=== PATIENT | male | born 1970 | race Caucasian/White ===

== ENCOUNTER 2018-01-12 15:02 | Inpatient (IN) | payer OTHER, MEDICARE ==
[~2018-01-12] VITALS: Ht 162.6 cm; Wt 90.7 kg
--- NOTE | 2018-01-12 15:37 | ED PSYCHIATRIC COMPLAINT ---
History of Present Illness General Chief Complaint: Psychiatric Related Complaint Stated Complaint: BIBA FOR PSYCH EVAL, +SI Source: patient Exam Limitations: poor historian Vital Signs & Intake/Output Vital Signs & Intake/Output Vital Signs Date Time Temp Pulse Resp B/P B/P Pulse O2 O2 Flow FiO2 Mean Ox Delivery Rate 01/13 0602 97.8 66 18 136/83 96 Room Air 01/12 2300 76 18 150/71 96 Room Air 01/12 2023 84 18 154/98 96 Room Air 01/12 1821 85 18 140/77 94 Room Air 01/12 1531 Room Air 01/12 1530 97.5 77 18 144/87 97 Room Air ED Intake and Output 01/13 0000 01/12 1200 Intake Total Output Total Balance Patient 200 lb Weight Weight Estimated Measurement Method Triage Note: PT COMING FROM HOME. VISITING NURSE WAS WITH PT. PT HAS STOPPED TAKING MEDS FOR BIPOLAR FOR 2 MO. STATES "I DON'T WANT TO TAKE MY MEDS WITH OUT A GOOD THERAPIST" PT WANTS HIS MEDS TO BE ADJUSTED AND GET IN TOUCH WITH A GOOD THERAPIST. DENIES SI/HI, DENIES ANY ETOH OR DRUGS. HY OF SCHIZOAFFECTIVE, BIPOLAR, AND TYPE 2 DM. BS 248 THIS AM. Triage Nurses Notes Reviewed? yes Onset: Gradual Duration: hour(s): Timing: single episode today HPI: 47YO male with hx of bipolar disorder and diabetes presents to ED in care of visiting nurse. Patient states he has been off of his bipolar medication for about 2 months, he states he does not want take this medication any longer. Patient endorses fuzzy sensation and dizziness. He states that this morning his nurse told him that when she was trying to wake him up he was unresponsive. Patient is unsure of exactly what happened. Patient denies any recent head injury. Patient reports depression however he denies suicidal ideation/HI. (Blanca BRYAN,Raiza Abdullahi) Allergies Coded Allergies: NSAIDS (Non-Steroidal Anti-Inflamma (PER MED LIST [facility] 01/12/18 ) aspirin (PER MED LIST [facility] 01/12/18) cephalexin (From KEFLEX) (PER [facility] MED LIST 01/12/18) insulin glargine (From LANTUS U-100 INSULIN) (PER MED LIST [facility] 01/12/18) Reconcile Medications Acetaminophen 500 MG TABLET 2 TAB PO Q6H CERVICAL PAIN (Reported) Acetaminophen (Mapap) 500 MG TABLET 2 TAB PO BID PRN PAIN (Reported) Duloxetine HCl (Cymbalta) 60 MG CAPSULE.DR 1 CAP PO QAM UNKNOWN (Reported) Levothyroxine Sodium (Synthroid) 150 MCG TABLET 1 TAB PO DAILY THYROID ( Reported) Metformin HCl (Metformin HCl ER) 500 MG TAB.ER.24H 3 TAB PO QPM DM (Reported) Metronidazole (Metrocream) 0.75 % CREAM..G. 1 KERI TOP AD PRN ITCHY AREAS ( Reported) apply to affected area(s) Nortriptyline HCl (Pamelor) 10 MG CAPSULE 1 CAP PO QHS UNKNOWN (Reported) Nystatin (Nyamyc) 100,000 UNIT/GRAM POWDER 1 KERI TOP AD PRN FUNGAL AREA ( Reported) Omeprazole 20 MG CAPSULE.DR 1 CAP PO BID GI (Reported) Pravastatin Sodium 40 MG TABLET 1 TAB PO QPM CHOLESTEROL (Reported) Ramipril (Altace) 10 MG CAPSULE 1 CAP PO QAM BP (Reported) Sitagliptin Phosphate (Januvia) 100 MG TABLET 1 TAB PO QAM DM (Reported) (Joyce VARGAS,Grabiel Cuadra) Past History Travel History Traveled to [place] past 21 day No Medical History Any Pertinent Medical History? see below for history Psychiatric: bipolar disease, schizo affective disorder Endocrine: diabetes Surgical History Surgical History: non-contributory Psychosocial History What is your primary language Jamaican Tobacco Use: Never used ETOH Use: denies use Family History Hx Contributory? No (Raiza Rodriguez) Review of Systems Review of Systems Constitutional: Reports: see HPI. EENTM: Reports: no symptoms. Respiratory: Reports: no symptoms. Cardiovascular: Reports: no symptoms. GI: Reports: no symptoms. Genitourinary: Reports: no symptoms. Musculoskeletal: Reports: no symptoms. Skin: Reports: no symptoms. Neurological/Psychological: Reports: see HPI. Hematologic/Endocrine: Reports: no symptoms. Immunologic/Allergic: Reports: no symptoms. All Other Systems: Reviewed and Negative (Raiza Rodriguez) Physical Exam Physical Exam General Appearance: well developed/nourished, no apparent distress, alert, awake Head: atraumatic, normal appearance Eyes: Bilateral: normal appearance, PERRL, EOMI. Ears, Nose, Throat: normal pharynx, hearing grossly normal Neck: normal inspection, supple, full range of motion Respiratory: normal breath sounds, no respiratory distress, lungs clear Cardiovascular: regular rate/rhythm Gastrointestinal: normal bowel sounds, soft, non-tender, no organomegaly Extremities: normal range of motion Neurological/Psychiatric: no motor/sensory deficits, awake, alert, normal mood/ affect, calm Appearance/Memory/Insight: appropriate appearance Behavoir/Eye Contact/Speech: cooperative, normal speech Thoughts/Hallucinations: normal thought pattern, no apparent hallucination Skin: intact, normal color, warm/dry SAD PERSONS Done? patient not suicidal (Blanca BRYAN,Raiza Abdullahi) Progress Differential Diagnosis: dementia, drug overdose, drug withdrawal, electrolyte abnormality, encephalitis, hypoglycemia, IC hem/mass/tumor Diagnostic Imaging: Viewed by Me: CT Scan. Discussed w/RAD: CT Scan. Radiology Impression: PATIENT: YOKO LOTT PRESENT AGE: 47 PATIENT ACCOUNT NO: [id number] : 68 LOCATION: [facility] ORDERING PHYSICIAN: Raiza BRYAN SERVICE DATE: 01/12/18 EXAM TYPE: CAT - CT HEAD WO IV CONTRAST EXAMINATION: CT HEAD WITHOUT CONTRAST CLINICAL INFORMATION: Altered mental status. COMPARISON: None. TECHNIQUE: Contiguous axial images of the brain were obtained without IV contrast. DLP: 621 mGy-cm. FINDINGS: There are no pathologic extra-axial fluid collections. The lateral, third, fourth ventricles are nondilated and concordant with the appearance of the sulci. There is no evidence for acute intraparenchymal hemorrhage or infarct. There is neither mass nor mass effect. There is no shift of midline structures. The paranasal sinuses and mastoid air cells are clear. There are no osseous lesions. IMPRESSION: No evidence for acute intracranial injury. DICTATED BY: Akbar Salvador MD DATE/TIME DICTATED:01/12/181648 PRODUCTION ENGINE REPAIRER: SUNDAR DATE/TIME TRANSCRIBED:01/12/181648 CONFIDENTIAL, DO NOT COPY WITHOUT APPROPRIATE AUTHORIZATION. <Electronically signed in Other Vendor System> SIGNED BY: Akbar Salvador MD 01/12/181654 Initial ED EKG: sinus rhythm @73bpm, nonspecific ST changes Hand-Off Endorsed To: Grabiel Cook MD Endorsed Time: 1899 Pending: consult (CRISIS) (Blanca BRYAN,Raiza Kaylen) Plan of Care: Orders Procedure Date/time Status Regular Diet 01/12 D Active Add-on Test (ER Only) 01/12 1705 Active Add-on Test (ER Only) 01/12 1609 Active FingerStick- Glucose 01/12 1609 Active EKG 01/12 1609 Active URINALYSIS 01/12 1550 Complete TROPONIN LEVEL 01/12 1546 Complete Continuous Observation Monitor 01/12 1536 Active URINE DRUG SCREEN FOR ER ONLY 01/12 1535 Complete ETHANOL 01/12 1535 Complete COMPREHENSIVE METABOLIC PANEL 01/12 1535 Complete CBC WITHOUT DIFFERENTIAL 01/12 1535 Complete ED CRISIS PSYCH CONSULT 01/12 1535 Active Laboratory Tests 01/12/18 1609: Urine Color Cancelled, Urine Clarity Cancelled, Urine pH Cancelled, Ur Specific [place] Cancelled, Urine Protein Cancelled, Urine Ketones Cancelled, Urine Nitrite Cancelled, Urine Bilirubin Cancelled, Urine Urobilinogen Cancelled, Ur Leukocyte Esterase Cancelled, Ur Microscopic Cancelled, Urine Hemoglobin Cancelled, Urine Glucose Cancelled 01/12/18 1550: Urine Opiates Screen < 100, Methadone Screen < 40, Barbiturate Screen < 60, Ur Phencyclidine Scrn < 6.00, Amphetamines Screen < 100, U Benzodiazepines Scrn < 85, Urine Cocaine Screen < 50, Urine Cannabis Screen < 5.00, Urine Color YEL, Urine Clarity CLEAR, Urine pH 6.0, Ur Specific [place] 1.020, Urine Protein NEG, Urine Ketones NEG, Urine Nitrite NEG, Urine Bilirubin NEG, Urine Urobilinogen 0.2, Ur Leukocyte Esterase NEG, Ur Microscopic EXAM NOT REQUIRED, Urine Hemoglobin NEG, Urine Glucose 500 H 01/12/18 1546: Anion Gap 10, Estimated GFR > 60, BUN/Creatinine Ratio 16.7, Glucose 148 H, Calcium 8.5, Total Bilirubin 0.2, AST 24, ALT 45, Alkaline Phosphatase 217 H, Troponin I < 0.01, Total Protein 6.3, Albumin 3.7, Globulin 2.6, Albumin/ Globulin Ratio 1.4, CBC w Diff NO MAN DIFF REQ, RBC 4.32 L, MCV 84.8, MCH 27.7, MCHC 32.7 L, RDW 15.4 H, MPV 10.0, Gran % 56.9, Lymphocytes % 30.5, Monocytes % 10.2 H, Eosinophils % 2.1, Basophils % 0.3, Absolute Granulocytes 3.5, Absolute Lymphocytes 1.9, Absolute Monocytes 0.6, Absolute Eosinophils 0.1, Absolute Basophils 0, Serum Alcohol < 10.0 During physical exam patient displayed episode of altered status which she would not respond to verbal stimuli. Patient was sitting upright in stretcher with his head slumped over. Respirations and heart rate were normal at this time. Patient on this incident head CT, EKG, troponin were obtained for further evaluation. Dr. Shore agrees with this plan Patient's EKG is in sinus rhythm without acute ischemic changes. Head CT shows no acute abnormality. Patient's labs are stable. Patient's confusion be related to psychiatric origin, crisis consult is pending. The patient was signed out to Dr. Cook pending crisis evaluation. (Blanca BRYAN,Raiza Abdullahi) Comments: 01/12/2018 7:29:35 PM patient signed out to me by PA at shift exchange teller. 01/12/2018 8:54:35 PM patient medicated for increasing agitation. According to the crisis condition the patient will be admitted tomorrow. 01/13/2018 7:28:44 AM patient signed out to Dr. Hayes at shift exchange teller after an uneventful emergency department stay overnight. (Joyce VARGAS,Grabiel Cuadra) Departure Departure Disposition: STILL A PATIENT Condition: Stable Departure Forms: Customer Survey General Discharge Information (Raiza Rodriguez) Departure Clinical Impression Primary Impression: Schizoaffective disorder Secondary Impressions: Confusion, Dizziness Psych Admission Note Psychiatric Admission: I have seen and evaluated YOKO LOTT. I have also reviewed all the pertinent lab results and diagnostic results. YOKO LOTT will be admitted to our inpatient Psychiatric unit for treatment and care. PA/CUSTOMER EXPERIENCE CONSULTANT Co-Sign Statement Statement: ED Attending supervision documentation- [X] I saw and evaluated the patient. I have also reviewed all the pertinent lab results and diagnostic results. I agree with the findings and the plan of care as documented in the PA's/CUSTOMER EXPERIENCE CONSULTANT's documentation. [X] I have reviewed the ED Record and agree with the PA's/CUSTOMER EXPERIENCE CONSULTANT's documentation. [] Additions or exceptions (if any) to the PAs/CUSTOMER EXPERIENCE CONSULTANT's note and plan are summarized below: [Patient to be admitted to [facility] for further evaluation and treatment] (Abigail VARGAS,Radu Michael)
[2018-01-12 16:02] LABS: ABSOLUTE BASOPHIL COUNT 0 /CUMM (0.0-0.2); ABSOLUTE EOSINOPHIL COUNT 0.1 /CUMM (0.0-0.7); ABSOLUTE GRANULOCYTE CT 3.5 /CUMM (1.4-6.5); ABSOLUTE LYMPH COUNT 1.9 /CUMM (1.2-3.4); ABSOLUTE MONOCYTE COUNT 0.6 /CUMM (0.10-0.60); BASOPHIL % 0.3 % (0.0-2.0); EOSINOPHIL % 2.1 % (0-5); GRANULOCYTE % 56.9 % (42.2-75.2); HEMATOCRIT 36.6 % (42-52); MEAN CORPUSCULAR HGB 27.7 PG (27.0-31.0); MEAN CORPUSCULAR HGB CONC 32.7 G/DL (33.0-37.0); MEAN CORPUSCULAR VOLUME 84.8 FL (80.0-94.0); PLATELET COUNT 169 /CUMM (130-400); RBC DISTRIBUTION WIDTH 15.4 % (11.5-14.5); RED BLOOD CELL CT 4.32 /CUMM (4.70-6.10); WHITE BLOOD CELL COUNT 6.2 /CUMM (4.8-10.8)
--- NOTE | 2018-01-12 16:55 | CT SCAN REPORT ---
EXAMINATION: CT HEAD WITHOUT CONTRAST CLINICAL INFORMATION: Altered mental status. COMPARISON: None. TECHNIQUE: Contiguous axial images of the brain were obtained without IV contrast. DLP: 621 mGy-cm. FINDINGS: There are no pathologic extra-axial fluid collections. The lateral, third, fourth ventricles are nondilated and concordant with the appearance of the sulci. There is no evidence for acute intraparenchymal hemorrhage or infarct. There is neither mass nor mass effect. There is no shift of midline structures. The paranasal sinuses and mastoid air cells are clear. There are no osseous lesions. IMPRESSION: No evidence for acute intracranial injury.
--- NOTE | 2018-01-12 18:59 | ED PSYCH CRISIS CONSULTATION ---
See Addendum Crisis Consult Basic Assessment Date of Consult: 01/12/18 Responsible Person/Accompanied By: Brought in by ambulance Insurance Authorization: Insurance #1: Insurance name: MEDICARE A Phone number: Policy number: [id number] Group number: Authorization number: ED Provider: Patient's ED Provider: Raiza Rodriguez Primary Care Physician: Patient's PCP: David Conti MD PCP's Current Psychiatrist: None Chief Complaint: Psychiatric Related Complaint Patient's Quote: "My nurse sent me in." Present Illness: The patient is a 47 year old, single male presenting to the Emergency Department, on the recommendation of his visiting. The patient presents alert and oriented with hyperverbal, pressured speech and tangential thought process, with loose associations. He states that his visiting nurse arrived and sent him to [facility], because he has gone to [place] "everyday for the last 2 weeks," and they have not helped him. He states that he is not feeling well and has been feeling dizzy, noting that "he fainted," earlier today. He states that he has been diagnosed with "Bipolar, Schizoaffective, Major Depression, Suicidal ideations and chronic pain," in the past. He was receiving treatment from [facility] and [facility], however the timeline is unclear. He states that he stopped treatment at [facility] because "they were unprofessional," and then stopped his medications on his own. He then goes on to discuss, being at [facility] and having the doctor stop his abilify, "because of his sugars (has Diabetes)". He was only able to provide minimal psychiatric treatment history, noting that he has been to [place] numerous times and was hospitalized for an eating Disorder at [facility], when he was 7 (for almost a year). He denies feeling depressed or anxious and denies any current suicidal or homicidal ideations. He reports one previous suicide attempt, in 2002 via OD. He states that he always hears the voice of his father, telling him very negative things. He denies that his AH are command in nature, however states they do make him feel depressed. He denies any paranoia or VH. He states that he has only been sleeping 1 hour a night and has had a decrease in motivation, energy, concentration and appetite. He kept repeating "that he does not feel right," and that he has been feeling overwhelmed. He states that he has been having difficulty word finding and that it is a new symptom for him. He denies any history of trauma or abuse. He denies any current or history of drug or alcohol abuse. He states that he resides in his own apartment, is on Social Security Disability, does not have any children and is not currently in a relationship. He would like to be admitted for his mental health issues and for a medical workup. SW left a message with the calling service for [facility] ([phone]), to try and find out, what the visiting nurse was concerned about and what the patients baseline is. Patient's Address: [address] [place] [address] [address] [place] [address] Other Phone Number: Who Do You Live With? Patient/Self Family/Informants Interviewed: Message left with [facility] Center, to talk to tester electronic scale nurse. . Laboratory Results: Laboratory Tests 01/12/18 1609: Urine Color Cancelled, Urine Clarity Cancelled, Urine pH Cancelled, Ur Specific [place] Cancelled, Urine Protein Cancelled, Urine Ketones Cancelled, Urine Nitrite Cancelled, Urine Bilirubin Cancelled, Urine Urobilinogen Cancelled, Ur Leukocyte Esterase Cancelled, Ur Microscopic Cancelled, Urine Hemoglobin Cancelled, Urine Glucose Cancelled 01/12/18 1550: Urine Opiates Screen < 100, Methadone Screen < 40, Barbiturate Screen < 60, Ur Phencyclidine Scrn < 6.00, Amphetamines Screen < 100, U Benzodiazepines Scrn < 85, Urine Cocaine Screen < 50, Urine Cannabis Screen < 5.00, Urine Color YEL, Urine Clarity CLEAR, Urine pH 6.0, Ur Specific [place] 1.020, Urine Protein NEG, Urine Ketones NEG, Urine Nitrite NEG, Urine Bilirubin NEG, Urine Urobilinogen 0.2, Ur Leukocyte Esterase NEG, Ur Microscopic EXAM NOT REQUIRED, Urine Hemoglobin NEG, Urine Glucose 500 H 01/12/18 1546: Anion Gap 10, Estimated GFR > 60, BUN/Creatinine Ratio 16.7, Glucose 148 H, Calcium 8.5, Total Bilirubin 0.2, AST 24, ALT 45, Alkaline Phosphatase 217 H, Troponin I < 0.01, Total Protein 6.3, Albumin 3.7, Globulin 2.6, Albumin/ Globulin Ratio 1.4, CBC w Diff NO MAN DIFF REQ, RBC 4.32 L, MCV 84.8, MCH 27.7, MCHC 32.7 L, RDW 15.4 H, MPV 10.0, Gran % 56.9, Lymphocytes % 30.5, Monocytes % 10.2 H, Eosinophils % 2.1, Basophils % 0.3, Absolute Granulocytes 3.5, Absolute Lymphocytes 1.9, Absolute Monocytes 0.6, Absolute Eosinophils 0.1, Absolute Basophils 0, Serum Alcohol < 10.0 Past History Past Medical History Psychiatric: bipolar disease, schizo affective disorder Endocrine: diabetes Past Surgical History Surgical History: non-contributory Psychosocial History Strengths/Capabilities: The patient has a stable living enviornment, a supportive visiting nurse and is on Social Security Disability. Physical Limitations (Interventions): He reports that he has chronic pain. Psychiatric Treatment History Psych Treatment Psychiatric Treatment Yes Inpatient Treatment Yes Outpatient Treatment Yes Location of Treatment [facility], [place], [facility], and [facility] Diagnosis by History: Per patient "Bipolar, Schizoaffective, Major Depression, Suicidal ideations and chronic pain." Substance Use/Abuse History Drug Use/Abuse Substances Used/Abused No (Pt. denies) First Use N/A Last Used N/A How much used/taken N/A How often N/A For how long N/A Route of use N/A Substance Abuse Treatment Substance Abuse Treatment Past Substance Abuse [place] No Inpatient Treatment No Outpatient Treatment No Location of Treatment N/A Reason for Treatment N/A Dates of Treatment N/A Response to Treatment N/A Comments: N/A Current Mental Status Mental Status Orientation: Person, Place, Situation, It is unclear if he is confused about the timeline of events or if he is unable to communicate them clearly. Affect: Flat Speech: Hyper-verbal (He states difficulty word find), Pressured Neuro-vegetative: Appetite Decreased, Concentration Poor, Energy Decreased, Sleep Disturbance Appearance Appearance- Dress/Hygiene: He was sitting on the bed, in hospital attire, with good eye contact and participatoin in the evalution. Behaviors Thought Process: Flight of Ideas, Tangential Thought Content: Focused on not being treated at [place] and not feeling well. Memory: Impaired (Difficult to assess) Insight: Fair SI/HI Risk Assessment Past Suicidal Ideation/Attempts Yes Current Suicidal Ideation/Att No Past Homicidal Ideation/Att: No Current Homicidal Ideation/Attempts No Degree of Intent: He denies any current SI or HI, however does admit to one previous attempt in 2002, in which he took an overdose. Danger To: N/A Risk Factors: chronic/serious med cond., history of suicide atmpts, SA/MH hospitalized, lives alone, male, limited support Lethality Ratin PTSD Checklist PTSD Done? 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 Stressors: Issues with his Medicaid and "dizziness." Current GAF: 30 Comments: N/A Departure Disposition Psych Medical Clearance Date: 01/12/18 Medically Cleared at: 1700 Time Started: 1700 Time Ended: 1800 Psychiatrist Consulted: Dr. Collado Date Disposition Established: 01/12/18 Time Disposition Established: 1929 Plan for Disposition - Modality: Hold over for reassessment and to obtain further collateral information. Rationale for Disposition: The patient presents alert and oriented with hyperverbal, pressured speech and tangential thought process, with loose associations. It is unclear the specific reason that he was sent to the ED. He denies SI or HI, however does report negative AH that cause depression. He is having difficulty with word finding and staying on topic. He was easy to redirect and apologetic when he needed to redirected, stating "I just dont feel good." He does report being off his psychiatric medications for the last 2 months and having to stop his Abilify abruptly. Case discussed with Dr. Collado and the patient will be held over for further assessment in the AM and to obtain collateral from previous provider or Visiting nurse, who can provide some insight on his baseline. Additional Instructions: N/A Referrals Gallito VARGAS,David Celaya (PCP/Family)
[2018-01-12] MEDS ORDERED: OMEPRAZOLE20 M2 PO (19:14)
[2018-01-12] MEDS ORDERED: ACETAMINOPHEN500 M4 PO (19:14)
[2018-01-12] MEDS ORDERED: PAMELOR10 MG PO (19:15)
[2018-01-12] MEDS ORDERED: CYMBALTA60 M1 PO (19:20)
[2018-01-12] MEDS ORDERED: MAPAP500 M3 PO (19:20)
[2018-01-12] MEDS ORDERED: PRAVASTATIN SOD40 M2 PO (19:21)
[2018-01-12] MEDS ORDERED: ALTACE10 M2 PO (19:21)
[2018-01-12] MEDS ORDERED: METFORMIN HCL500 M4 PO (19:22)
[2018-01-12] MEDS ORDERED: SYNTHROID150 MCG PO (19:22)
[2018-01-12] MEDS ORDERED: JANUVIA100 M1 PO (19:22)
[2018-01-12] MEDS ORDERED: METROCREAM45 GM TOP (19:23)
[2018-01-12] MEDS ORDERED: NYAMYC15 GM TOP (19:23)
--- NOTE | 2018-01-13 10:51 | IP CRISIS DIAG ASSESS PSYCH ---
Diagnostic Assessment Basic Assessment Insurance Authorization: Insurance #1: Insurance name: MEDICARE A Phone number: Policy number: [id number] Group number: Authorization number: Primary Care Physician: Patient's PCP: David Conti MD PCP's Patient's Quote: "My nurse sent me in." Present Illness: The patient is a 47 year old, single male presenting to the Emergency Department, on the recommendation of his visiting. The patient presents alert and oriented with hyperverbal, pressured speech and tangential thought process, with loose associations. He states that his visiting nurse arrived and sent him to [facility], because he has gone to [facility] "everyday for the last 2 weeks," and they have not helped him. He states that he is not feeling well and has been feeling dizzy, noting that "he fainted," earlier today. He states that he has been diagnosed with "Bipolar, Schizoaffective, Major Depression, Suicidal ideations and chronic pain," in the past. He was receiving treatment from [facility] and [facility], however the timeline is unclear. He states that he stopped treatment at [facility] because "they were unprofessional," and then stopped his medications on his own. He then goes on to discuss, being at [facility] and having the doctor stop his abilify, "because of his sugars (has Diabetes)". He was only able to provide minimal psychiatric treatment history, noting that he has been to [facility] numerous times and was hospitalized for an eating Disorder at [facility], when he was 7 (for almost a year). He denies feeling depressed or anxious and denies any current suicidal or homicidal ideations. He reports one previous suicide attempt, in 2002 via OD. He states that he always hears the voice of his father, telling him very negative things. He denies that his AH are command in nature, however states they do make him feel depressed. He denies any paranoia or VH. He states that he has only been sleeping 1 hour a night and has had a decrease in motivation, energy, concentration and appetite. He kept repeating "that he does not feel right," and that he has been feeling overwhelmed. He states that he has been having difficulty word finding and that it is a new symptom for him. He denies any history of trauma or abuse. He denies any current or history of drug or alcohol abuse. He states that he resides in his own apartment, is on Social Security Disability, does not have any children and is not currently in a relationship. He would like to be admitted for his mental health issues and for a medical workup. SW left a message with the calling service for [facility] ([phone]), to try and find out, what the visiting nurse was concerned about and what the patients baseline is. Patient visiting nurse is Lila from [facility]. Her phone number is [phone]. She works out of the [employer] in [place] and phone mumber there is [phone]. Patient has been treated by PCP Dr. Conti, who has intermediate designer awareness of patient and reiterates that patient has had treaters in the past; however he "fires" people if he does not get treated in the way he wants to be treated and he gets argumentative. Patient has been sporadically compiant with his medication. Dr Conti indicated that he had done pretty well with Cymbalta and Perphenazine in the past. Also tried to contact a friend of the patient with whom patient had worked at [employer] years ago. The friend is supposed to be visiting [place] in January. He is [place] and he lives in [facility] . Patient's Address: [address] [place] [address] [address] [place] [address] Other Phone Number: Who Do You Live With? Patient/Self Feel Safe Where You Live? Yes Feel Safe in Your Relationship Yes Marital Status: single Do You Have Children? No Primary Language? [place] Island[place] Language(s) Spoken At Home: [place] Family/Informants Interviewed: Message left with [facility] Call Center, to talk to foundation relations manager nurse. . Allergies - Coded Allergies: NSAIDS (Non-Steroidal Anti-Inflamma (PER MED LIST [facility] 01/12/18 ) aspirin (PER MED LIST [facility] 01/12/18) cephalexin (From KEFLEX) (PER [facility] MED LIST 01/12/18) insulin glargine (From LANTUS U-100 INSULIN) (PER MED LIST [facility] 01/12/18) Current Medications - Scheduled Medications Acetaminophen 500 MG TABLET 2 TAB PO Q6H CERVICAL PAIN (Reported) Entered as Reported by Aubree Lyles on 01/12/181913 Duloxetine HCl (Cymbalta) 60 MG CAPSULE. 1 CAP PO QAM UNKNOWN (Reported) Entered as Reported by Aubree Lyles on 01/12/181919 Levothyroxine Sodium (Synthroid) 150 MCG TABLET 1 TAB PO DAILY THYROID ( Reported) Entered as Reported by Aubree Lyles on 01/12/181921 Metformin HCl (Metformin HCl ER) 500 MG TAB.ER.24H 3 TAB PO QPM DM (Reported) Entered as Reported by Aubree Lyles on 01/12/181921 Nortriptyline HCl (Pamelor) 10 MG CAPSULE 1 CAP PO QHS UNKNOWN (Reported) Entered as Reported by Aubree Lyles on 01/12/181914 Omeprazole 20 MG CAPSULE. 1 CAP PO BID GI (Reported) Entered as Reported by Aubree Lyles on 01/12/181913 Pravastatin Sodium 40 MG TABLET 1 TAB PO QPM CHOLESTEROL (Reported) Entered as Reported by Aubree Lyles on 01/12/181920 Ramipril (Altace) 10 MG CAPSULE 1 CAP PO QAM BP (Reported) Entered as Reported by Aubree Lyles on 01/12/181920 Sitagliptin Phosphate (Januvia) 100 MG TABLET 1 TAB PO QAM DM (Reported) Entered as Reported by Aubree Lyles on 01/12/181921 Scheduled PRN Medications Acetaminophen (Mapap) 500 MG TABLET 2 TAB PO BID PRN PAIN (Reported) Entered as Reported by Aubree Lyles on 01/12/181919 Metronidazole (Metrocream) 0.75 % CREAM..G. 1 KERI TOP AD PRN ITCHY AREAS ( Reported) Entered as Reported by Aubree Lyles on 01/12/181922 Nystatin (Nyamyc) 100,000 UNIT/GRAM POWDER 1 KERI TOP AD PRN FUNGAL AREA ( Reported) Entered as Reported by Aubree Lyles on 01/12/181922 Consequences of Psych Med Use: sometimes not remember Lab Results: Laboratory Tests 01/12/18 1609: Urine Color Cancelled, Urine Clarity Cancelled, Urine pH Cancelled, Ur Specific Mcdavid Cancelled, Urine Protein Cancelled, Urine Ketones Cancelled, Urine Nitrite Cancelled, Urine Bilirubin Cancelled, Urine Urobilinogen Cancelled, Ur Leukocyte Esterase Cancelled, Ur Microscopic Cancelled, Urine Hemoglobin Cancelled, Urine Glucose Cancelled 01/12/18 1550: Urine Opiates Screen < 100, Methadone Screen < 40, Barbiturate Screen < 60, Ur Phencyclidine Scrn < 6.00, Amphetamines Screen < 100, U Benzodiazepines Scrn < 85, Urine Cocaine Screen < 50, Urine Cannabis Screen < 5.00, Urine Color YEL, Urine Clarity CLEAR, Urine pH 6.0, Ur Specific Mcdavid 1.020, Urine Protein NEG, Urine Ketones NEG, Urine Nitrite NEG, Urine Bilirubin NEG, Urine Urobilinogen 0.2, Ur Leukocyte Esterase NEG, Ur Microscopic EXAM NOT REQUIRED, Urine Hemoglobin NEG, Urine Glucose 500 H 01/12/18 1546: Anion Gap 10, Estimated GFR > 60, BUN/Creatinine Ratio 16.7, Glucose 148 H, Calcium 8.5, Total Bilirubin 0.2, AST 24, ALT 45, Alkaline Phosphatase 217 H, Troponin I < 0.01, Total Protein 6.3, Albumin 3.7, Globulin 2.6, Albumin/ Globulin Ratio 1.4, CBC w Diff NO MAN DIFF REQ, RBC 4.32 L, MCV 84.8, MCH 27.7, MCHC 32.7 L, RDW 15.4 H, MPV 10.0, Gran % 56.9, Lymphocytes % 30.5, Monocytes % 10.2 H, Eosinophils % 2.1, Basophils % 0.3, Absolute Granulocytes 3.5, Absolute Lymphocytes 1.9, Absolute Monocytes 0.6, Absolute Eosinophils 0.1, Absolute Basophils 0, Serum Alcohol < 10.0 Toxicology Screen Completed? Yes Results: negative Symptoms of Use: none Past History Past Medical History Medical History: Bipolar disorder, Depression Abuse/Trauma History Trauma History/Current Trauma: Denies Legal History Current Legal Status: none Have you ever been arrested? No Number of Arrests: [address] Dates: none Network Analyst n/a Psychosocial History Strengths/Capabilities: The patient has a stable living enviornment, a supportive visiting nurse and is on Social Security Disability. Physical Limitations (Interventions): He reports that he has chronic pain. Psychiatric Treatment History Psych Treatment Psychiatric Treatment Yes Inpatient Treatment Yes Outpatient Treatment Yes Location of Treatment [facility], [facility], and [facility] Reason for Treatment Bipolar d/o Dates of Treatment past 20 years Response to Treatment bipolar disorder Diagnosis by History: Per patient "Bipolar, Schizoaffective, Major Depression, Suicidal ideations and chronic pain." Risk Factors: chronic/serious med cond., history of suicide atmpts, SA/MH hospitalized, lives alone, male, limited support Substance Use/Abuse History Drug Use/Abuse minimum 12mo Hx Substances Used/Abused No (Pt. denies) First Use N/A Last Used N/A How much used/taken N/A How often N/A For how long N/A Route of use N/A Substance Abuse Treatment Substance Abuse Treatment Past Substance Abuse TX No Inpatient Treatment No Outpatient Treatment No Location of Treatment N/A Reason for Treatment N/A Dates of Treatment N/A Response to Treatment N/A Sexual History Sexually Active No # of partners 0 Sexual Orientation Heterosexual Use of Protection No Sexual Concerns: would like to meet a partner Education History Highest Level of Education: high school/GED Preferred Learning Style: experiential Current Mental Status Mental Status Orientation: Person, Place, Situation, It is unclear if he is confused about the timeline of events or if he is unable to communicate them clearly., unsure of time Affect: Anxious, Flat Speech: Hyper-verbal (He states difficulty word find), Pressured Neuro-vegetative: Appetite Decreased, Concentration Poor, Energy Decreased, Sleep Disturbance Appearance Appearance- Dress/Hygiene: He was sitting on the bed, in hospital attire, with good eye contact and participatoin in the evalution. Behaviors Thought Process: Flight of Ideas, Tangential Thought Content: Focused on not being treated at [facility] and not feeling well. Memory: Impaired (Difficult to assess) Insight: Fair SI/HI Risk Assessment - Minimum 6mo History- Past Suicidal Ideation/Attempts Yes Current Suicidal Ideation/Att No Past Homicidal Ideation/Att: No Current Homicidal Ideation/Attempts No Degree of Intent: He denies any current SI or HI, however does admit to one previous attempt in 2002, in which he took an overdose. Danger To: N/A Risk Factors: chronic/serious med cond., history of suicide atmpts, SA/MH hospitalized, lives alone, male, limited support Lethality Ratin Needs/Init TX Plan/Goals: Admit patient to locked inpatient unit and place on 15 minute checks Medication and psychiatric evaluation Group and individual treatment Coordinate with [facility] nurse Arrange follow-up treatment AUDIT-C Questionnaire: AUDIT-C Questionnaire: Response Value ETOH use in the past year Never 0 # drinks typical/day Doesn't Drink 0 6 or > drinks per occasion Never 0 Total 0 DSM5/PS Stressors/Medical Prob Diagnosis' (DSM 5, Stressors, Medical): F31.9 Unspecified Bipolar Disorder Medical: Diabetes Type II, Chronic pain and 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 Stressors: Issues with his Medicaid and "dizziness." Current GAF: 30 Comments: Patient parents are and he has only one brother with whom he has no contact. Patient has been to out-patient mental health providers, and has dropped out of several venues, and is not seeing anyone at present.
[2018-01-13 16:36] VITALS: BP 147/90
[2018-01-13 19:49] VITALS: BP 111/58
--- NOTE | 2018-01-13 21:49 | SOCIAL WORKER SOCIAL HX PSYCH ---
Social History Basic Assessment Insurance Authorization: Insurance #1: Insurance name: MEDICARE A Phone number: Policy number: [id number] Group number: Authorization number: Curr Source of Income/Entitlements: SSI (Disability) Primary Care Physician: Patient's PCP: David Conti MD PCP's Present Problem: Patient admitted for suicidal ideation and risk of harm to self. Primary Language? Azeri Language(s) Spoken At Home: Azeri Living Situation Rents or Owns Home? rents Feel Safe Where You Are Living Yes Feel Safe in Relationships? Yes Allergies - Coded Allergies: NSAIDS (Non-Steroidal Anti-Inflamma (PER MED LIST [facility] 01/12/18 ) aspirin (PER MED LIST [facility] 01/12/18) cephalexin (From KEFLEX) (PER [facility] MED LIST 01/12/18) insulin glargine (From LANTUS U-100 INSULIN) (PER MED LIST [facility] 01/12/18) Current Medications - Scheduled Medications Acetaminophen 500 MG TABLET 2 TAB PO Q6H CERVICAL PAIN (Reported) Entered as Reported by Aubree Lyles on 01/12/181913 Duloxetine HCl (Cymbalta) 60 MG CAPSULE. 1 CAP PO QAM UNKNOWN (Reported) Entered as Reported by Aubree Lyles on 01/12/181919 Levothyroxine Sodium (Synthroid) 150 MCG TABLET 1 TAB PO DAILY THYROID ( Reported) Entered as Reported by Aubree Lyles on 01/12/181921 Metformin HCl (Metformin HCl ER) 500 MG TAB.ER.24H 3 TAB PO QPM DM (Reported) Entered as Reported by Aubree Lyles on 01/12/181921 Nortriptyline HCl (Pamelor) 10 MG CAPSULE 1 CAP PO QHS UNKNOWN (Reported) Entered as Reported by Aubree Lyles on 01/12/181914 Omeprazole 20 MG CAPSULE.DR 1 CAP PO BID GI (Reported) Entered as Reported by Aubree Lyles on 01/12/181913 Pravastatin Sodium 40 MG TABLET 1 TAB PO QPM CHOLESTEROL (Reported) Entered as Reported by Aubree Lyles on 01/12/181920 Ramipril (Altace) 10 MG CAPSULE 1 CAP PO QAM BP (Reported) Entered as Reported by Aubree Lyles on 01/12/181920 Sitagliptin Phosphate (Januvia) 100 MG TABLET 1 TAB PO QAM DM (Reported) Entered as Reported by Aubree Lyles on 01/12/181921 Scheduled PRN Medications Acetaminophen (Mapap) 500 MG TABLET 2 TAB PO BID PRN PAIN (Reported) Entered as Reported by Aubree Lyles on 01/12/181919 Metronidazole (Metrocream) 0.75 % CREAM..G. 1 KERI TOP AD PRN ITCHY AREAS ( Reported) Entered as Reported by Aubree Lyles on 01/12/181922 Nystatin (Nyamyc) 100,000 UNIT/GRAM POWDER 1 KERI TOP AD PRN FUNGAL AREA ( Reported) Entered as Reported by Aubree Lyles on 01/12/181922 Consequences of Psych Med Use: None assessed Past History Past Medical History Neurological: dizziness EENT: NONE Cardiovascular: hypertension Respiratory: NONE Gastrointestinal: constipation Hepatic: NONE Renal: NONE Musculoskeletal: NONE Psychiatric: bipolar disease, schizo affective disorder Endocrine: diabetes Blood Disorders: NONE Cancer(s): NONE PARACHUTE INSPECTOR/Reproductive: NONE Past Surgical History Surgical History: non-contributory /Family History Place/Country of Origin: Unknown Childhood Family Constellation: parents and siblings Primary Childhood Caretakers: father, mother Family Life During Childhood: Patient was raised by both parents who are both now. Relationship w/Mother: Mother in 2002 Relationship w/Father: Father in 2015 Any Sibling(s)? Yes Sibling's Gender(s)/Age(s): male Sibling 1: (Age 51) Relationship w/Sibling(s): Patient states he does not speak with his brother at all. Relationship w/Friends: Positive Abuse/Trauma History Trauma History/Current Trauma: Denies History of Trauma/Abuse Treatment? No Legal History Current Legal Status: none Have you ever been arrested No Number of Arrests: 0 Hx of Juvenile Legal Charges? No Hx of Adult Legal Charges? No Civil Proceedings: Patient indicates he may have been involved in probate court for mental capacity / competency hearings in consideration of a conservator. Hydro Technician n/a Psychosocial History Primary Support System: VNA & primary doctor Strengths/Capabilities: The patient has a stable living enviornment, a supportive visiting nurse and is on Social Security Disability. Physical Limitations (Interventions): He reports that he has chronic pain. Last Physical: Unknown History of Seizures? No History of Blackouts? No Hagerman/Social/Peer Relations Patient has positive peer relationships Childhood Zoroastrianism: Jehovah'S Witness Current Zoroastrian Affiliation: Jehovah'S Witness Is Spirituality Important to You? Yes Are There Developmental Issues? No Psychiatric Treatment History Psych Treatment Inpatient Treatment Yes Outpatient Treatment Yes Location of Treatment [facility], [facility], and [facility] Reason for Treatment Bipolar d/o Dates of Treatment past 20 years Response to Treatment bipolar disorder Diagnosis: Per patient "Bipolar, Schizoaffective, Major Depression, Suicidal ideations and chronic pain." Risk Factors: chronic/serious med cond., history of suicide atmpts, SA/MH hospitalized, lives alone, male, limited support Substance Use/Abuse History Drug Use/Abuse:Min 12 mo hx First Use N/A Last Used N/A How much used/taken N/A How often N/A For how long N/A Route of use N/A Have Had Periods of Sobriety? Yes Symptoms of Use: none Substance Abuse Treatment Substance Abuse Treatment Inpatient Treatment No Outpatient Treatment No Location of Treatment N/A Reason for Treatment N/A Dates of Treatment N/A Response to Treatment N/A Sexual History Sexually Active No # of partners 0 Sexual Orientation Heterosexual Use of Protection No Sexual Concerns: would like to meet a partner Education History Highest Level of Education: high school/GED Highest Grade Completed: 12 Preferred Learning Style: experiential Employment History Employment Disability Not in Labor Force: Disabled Vocation/Occupational Hx: Worked at the [employer] over 10 yrs No. of Jobs in Last 5 Years: 2 Attendance: Normal Performance: Good History Have You Been in The ? No Current Mental Status Mental Status Orientation: Person, Place, Situation, It is unclear if he is confused about the timeline of events or if he is unable to communicate them clearly. unsure of time Affect: Anxious, Flat Speech: Hyper-verbal (He states difficulty word find), Pressured Neuro-vegetative: Appetite Decreased, Concentration Poor, Energy Decreased, Sleep Disturbance Appearance Appearance- Dress/Hygiene: He was sitting on the bed, in hospital attire, with good eye contact and participatoin in the evalution. Behaviors Thought Process: Flight of Ideas, Tangential Thought Content: Focused on not being treated at [facility] and not feeling well. Memory: Impaired (Difficult to assess) Insight: Fair SI/HI Risk Assessment Past Suicidal Ideation/Attempts Yes Current Suicidal Ideation/Att No Past Homicidal Ideation/Att: No Current Homicidal Ideation/Attempts No Degree of Intent: He denies any current SI or HI, however does admit to one previous attempt in 2002, in which he took an overdose. Danger To: N/A Lethality Ratin - Conclusion and Recommendations for treatment - and discharge planning Summary: -Patient would like inpatient psychiatric team to request his medical records from [facility]. -Patient will be seen and followed by psychiatric provider who will further assess psychotropic medication management. -Patient will be seen by unit social media community manager individually and with family meetings -Patient will have opportunity to participate in group milieu treatment with various groups led by occupational therapy,social work and nursing staff. -Patient will collobarate with all staff on a safe and appropriate discharge plan
--- NOTE | 2018-01-13 23:30 | History & Physical ---
General Information and HPI History of Present Illness: 47M PMH schizoaffective disorder, hypothyroidism, T2DM, presenting initially to the ED after being advised to go by his visiting nurse. Patient has been inconsistent with his medications, and presents in manic phase, with pressured speech and disorganized thoughts. He complains of a chronic dizziness, which he cannot quite describe, but denies vertigo or lightheadedness. It is constant and not exacerbated by movement, orthostasis, and is not associated with chest pain, palpitations, vision changes, SOB, or any other symptoms. He has chronic back pain that has resolved with physical therapy. He has no other complaints. He denies SI/HI. He does report depression. Allergies/Medications Allergies: Coded Allergies: NSAIDS (Non-Steroidal Anti-Inflamma (PER MED LIST [facility] 01/12/18 ) aspirin (PER MED LIST [facility] 01/12/18) cephalexin (From KEFLEX) (PER [facility] MED [facility] 01/12/18) insulin glargine (From LANTUS U-100 INSULIN) (PER MED LIST [facility] 01/12/18) Home Med list Acetaminophen 500 MG TABLET 2 TAB PO Q6H CERVICAL PAIN (Reported) Acetaminophen (Mapap) 500 MG TABLET 2 TAB PO BID PRN PAIN (Reported) Duloxetine HCl (Cymbalta) 60 MG CAPSULE.DR 1 CAP PO QAM UNKNOWN (Reported) Levothyroxine Sodium (Synthroid) 150 MCG TABLET 1 TAB PO DAILY THYROID ( Reported) Metformin HCl (Metformin HCl ER) 500 MG TAB.ER.24H 3 TAB PO QPM DM (Reported) Metronidazole (Metrocream) 0.75 % CREAM..G. 1 KERI TOP AD PRN ITCHY AREAS ( Reported) apply to affected area(s) Nortriptyline HCl (Pamelor) 10 MG CAPSULE 1 CAP PO QHS UNKNOWN (Reported) Nystatin (Nyamyc) 100,000 UNIT/GRAM POWDER 1 KERI TOP AD PRN FUNGAL AREA ( Reported) Omeprazole 20 MG CAPSULE.DR 1 CAP PO BID GI (Reported) Pravastatin Sodium 40 MG TABLET 1 TAB PO QPM CHOLESTEROL (Reported) Ramipril (Altace) 10 MG CAPSULE 1 CAP PO QAM BP (Reported) Sitagliptin Phosphate (Januvia) 100 MG TABLET 1 TAB PO QAM DM (Reported) Past History Travel History Traveled to [place] past 21 day No Medical History Neurological: dizziness EENT: NONE Cardiovascular: hypertension Respiratory: NONE Gastrointestinal: constipation Hepatic: NONE Renal: NONE Musculoskeletal: NONE Psychiatric: bipolar disease, schizo affective disorder Endocrine: diabetes Blood Disorders: NONE Cancer(s): NONE 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 Home ETOH Use: denies use Employment History Employment Disability Profession/Employer Worked at the [employer] over 10 yrs Review of Systems Review of Systems Constitutional: Reports: no symptoms. EENTM: Reports: no symptoms. Cardiovascular: Reports: no symptoms. Respiratory: Reports: no symptoms. GI: Reports: no symptoms. Genitourinary: Reports: no symptoms. Musculoskeletal: Reports: no symptoms. Skin: Reports: no symptoms. Neurological/Psychological: Reports: no symptoms. Hematologic/Endocrine: Reports: no symptoms. Immunologic/Allergic: Reports: no symptoms. All Other Systems: Reviewed and Negative Exam & Diagnostic Data Last 24 Hrs of Vital Signs/I&O Vital Signs Date Time Temp Pulse Resp B/P B/P Pulse O2 O2 Flow FiO2 Mean Ox Delivery Rate 01/13 1949 97.1 100 111/58 01/13 1636 97.7 99 147/90 01/13 1525 98.7 85 20 146/81 98 Room Air 01/13 1315 65 20 138/78 96 01/13 0602 97.8 66 18 136/83 96 Room Air Physical Exam General Appearance Alert, Oriented X3, Cooperative, No Acute Distress Skin No Significant Lesion HEENT Mucous Membr. moist/pink Neck Supple Cardiovascular Regular Rate Lungs Clear to Auscultation Abdomen Soft, No Tenderness Neurological Exam Findings: Normal Gait, Normal Speech, Sensation Intact Cranial Nerves II through XII: Normal as tested Extremities No Clubbing, No Cyanosis, No Edema Vascular Normal Pulses Last 24 Hrs of Labs/Aron: Laboratory Tests 01/12/18 1609: Urine Color Cancelled, Urine Clarity Cancelled, Urine pH Cancelled, Ur Specific [place] Cancelled, Urine Protein Cancelled, Urine Ketones Cancelled, Urine Nitrite Cancelled, Urine Bilirubin Cancelled, Urine Urobilinogen Cancelled, Ur Leukocyte Esterase Cancelled, Ur Microscopic Cancelled, Urine Hemoglobin Cancelled, Urine Glucose Cancelled 01/12/18 1550: Urine Opiates Screen < 100, Methadone Screen < 40, Barbiturate Screen < 60, Ur Phencyclidine Scrn < 6.00, Amphetamines Screen < 100, U Benzodiazepines Scrn < 85, Urine Cocaine Screen < 50, Urine Cannabis Screen < 5.00, Urine Color YEL, Urine Clarity CLEAR, Urine pH 6.0, Ur Specific [place] 1.020, Urine Protein NEG, Urine Ketones NEG, Urine Nitrite NEG, Urine Bilirubin NEG, Urine Urobilinogen 0.2, Ur Leukocyte Esterase NEG, Ur Microscopic EXAM NOT REQUIRED, Urine Hemoglobin NEG, Urine Glucose 500 H 01/12/18 1546: Anion Gap 10, Estimated GFR > 60, BUN/Creatinine Ratio 16.7, Glucose 148 H, Calcium 8.5, Total Bilirubin 0.2, AST 24, ALT 45, Alkaline Phosphatase 217 H, Troponin I < 0.01, Total Protein 6.3, Albumin 3.7, Globulin 2.6, Albumin/ Globulin Ratio 1.4, CBC w Diff NO MAN DIFF REQ, RBC 4.32 L, MCV 84.8, MCH 27.7, MCHC 32.7 L, RDW 15.4 H, MPV 10.0, Gran % 56.9, Lymphocytes % 30.5, Monocytes % 10.2 H, Eosinophils % 2.1, Basophils % 0.3, Absolute Granulocytes 3.5, Absolute Lymphocytes 1.9, Absolute Monocytes 0.6, Absolute Eosinophils 0.1, Absolute Basophils 0, Serum Alcohol < 10.0 Assessment/Plan Assessment: 47M PMH schizoaffective disorder, hypothyroidism, T2DM presenting with manic episode, with complaints of chronic dizziness. Recommendations - Management per psychiatry - Continue home medications - Ambulatory for DVT PPx As Ranked By This Provider Problem List: 1. Dizziness 2. Schizoaffective disorder Miscellaneous Miscellaneous Documentation Attending Case Discussed With: Adam Parra MD Primary Care Physician: David Conti MD. Patient sees these Specialists None Level of Patient Care: MARCELO Alcocer
[2018-01-14 07:54] VITALS: BP 145/97
[2018-01-14 12:04] VITALS: BP 126/75
--- NOTE | 2018-01-14 13:14 | Patient Discharge Instructions ---
See Addendum Psych Discharge Inst General Discharge Information Reason for Admission: Referred by visiting nurse. Syncope. AH of father. Decreased sleep, motivation, energy, concentration and appetite. Limited supports. Psy Discharge Primary Diag+ Schizoaffective disorder Psy Discharge Secondary Diag+ Hx learning disability Hypothyroidism Diabetes type II Hypertension Hyperlipidemia Chronic dizziness Back pain Headache Congenital heart murmur Summary Tests/Major Procedures Lab ALT 45 U/L 01/12/18 1546 AST 24 U/L 01/12/18 1546 Alkaline Phosphatase 217 U/L H 01/12/18 1546 BUN 10 mg/dL 01/12/18 1546 Calcium 8.5 mg/dL 01/12/18 1546 Carbon Dioxide 29 mmol/L 01/12/18 1546 Chloride 103 mmol/L 01/12/18 1546 Cholesterol 167 MG/DL 01/14/18 0645 Cholesterol/HDL Ratio 3.7 % 01/14/18 0645 Creatinine 0.6 mg/dL L 01/12/18 1546 Estimated GFR > 60 ml/min 01/12/18 1546 Free T4 0.74 ng/dL 01/14/18 0645 Glucose 148 mg/dL H 01/12/18 1546 HDL Cholesterol 45 mg/dL 01/14/18 0645 LDL Cholesterol, Calc 61 mg/dL L 01/14/18 0645 Potassium 4.4 mmol/L 01/12/18 1546 Sodium 141 mmol/L 01/12/18 1546 TSH 6.240 uIU/mL H 01/14/18 0645 Thyroxine (T4) 4.7 ug/dL 01/14/18 0645 Triglycerides 306 mg/dL H 01/14/18 0645 Hct 36.6 % L 01/12/18 1546 Hgb 12.0 G/DL L 01/12/18 1546 MCHC 32.7 G/DL L 01/12/18 1546 Monocytes % 10.2 % H 01/12/18 1546 Plt Count 169 /CUMM 01/12/18 1546 RBC 4.32 /CUMM L 01/12/18 1546 RDW 15.4 % H 01/12/18 1546 WBC 6.2 /CUMM 01/12/18 1546 Serum Alcohol < 10.0 MG/DL 01/12/18 1546 Urine Glucose 500 MG/DL H 01/12/18 1550 SERVICE DATE: 01/12/18 EXAM TYPE: CAT - CT HEAD WO IV CONTRAST EXAMINATION: CT HEAD WITHOUT CONTRAST CLINICAL INFORMATION: Altered mental status. COMPARISON: None. TECHNIQUE: Contiguous axial images of the brain were obtained without IV contrast. DLP: 621 mGy-cm. FINDINGS: There are no pathologic extra-axial fluid collections. The lateral, third, fourth ventricles are nondilated and concordant with the appearance of the sulci. There is no evidence for acute intraparenchymal hemorrhage or infarct. There is neither mass nor mass effect. There is no shift of midline structures. The paranasal sinuses and mastoid air cells are clear. There are no osseous lesions. IMPRESSION: No evidence for acute intracranial injury. EKG 01/12/18 showed sinus rhythm @ 73, borderline left axis deviation, incomplete right bundle branch block, no previous tracing, borderline EKG, QT 388, QTc 428. Studies Pending at DC: Glycohemoglobin Patient Instructions Contact Information Your Psychiatrist on [facility] was Chris Jean MD * If you are experiencing an emergency related to this hospitalization, please call [phone] to contact the treating psychiatrist or the psychiatrist-on- call. * To Request a copy of your medical records, please contact the Medical Records Department at [phone]. * To request results of studies pending at the time of discharge, please call [phone]. * Continue your Medications until directed to stop by your Healthcare provider. General Medication Information Please continue to take your new medications and your continued home medications , unless otherwise indicated on your discharge medication list, or unless directed by your MD or INSPECTOR WREATH to stop them. Special Instructions Diet Diabetic Activity As Tolerated Other Inst/Recommendations SeePCP for dizziness,back pain,H/A, hiTSH, high alk phos, anemia, abnl EKG. - Tobacco Use Treatment Offered Post DC Medications Offered: Not Applicable Post DC Tobacco Treatment Plan: Not Applicable - EtOH/Drug Use D/O Treatment Offered Post DC Medications Offered: NA-No EtOH/Drug Use D/O Post DC EtOH/SubAbuse TX Plan: NA-No EtOH/Drug Use D/O Metabolic Screening () Not Applicable, patient not on a neuroleptic. OR () Patient on a neuroleptic(s) . Enter below results for Hemoglobin A1C, and lipid panel if obtained during the last 365 days. BMI: 34.300 Blood Pressure: 126/75 Laboratory Results From [facility] (If applicable): [x] Lab Cholesterol 167 MG/DL 01/14/18 0645 Cholesterol/HDL Ratio 3.7 % 01/14/18 0645 HDL Cholesterol 45 mg/dL 01/14/18 0645 LDL Cholesterol, Calc 61 mg/dL L 01/14/18 0645 Triglycerides 306 mg/dL H 01/14/18 0645 Glycohemoglobin ordered and pending. Advance Directives Does the Patient have Medical Advance Directives No/Refused further info Does Pt have Psychiatric Advance Directives? No/Refused further info Does Patient have a Designated Surrogate Decision Maker: No Information About Psychiatric Advance Directives Provided? Refused Discharge Plan Post Hospital Treatment Plan: Returning to home. Resume visiting nurse services with [facility]. [facility] for therapy. Medication management at [facility]. Medical care with PCP David Conti MD.
[2018-01-14] MEDS ORDERED: PERPHENAZINE4 M1 PO (15:05)
[2018-01-14] MEDS ORDERED: BENZTROPINE ME0.5 M1 PO (15:05)
--- NOTE | 2018-01-14 16:00 | CPS PROVIDER INIT ASMT PSYCH ---
Psychiatric Admission Blow Down Helper's Note Reviewed: Yes Patient Seen and Examined: Yes (Seen with PA student) Identifying Information: 47 yo SWM with schizoaffective d/o, admitted on 01/12/18 on a voluntary basis, referred by ER. Chief Complaint: Referred by visiting nurse. Syncope. AH of father. Decreased sleep, motivation, energy, concentration and appetite. Limited supports. Reaction to Hospitalization: "Really good." Wants more 1 on 1. History of Present Illness Onset of Illness: Chronic. Reportedly was visiting [place] ER every day for the last 2 weeks. Circumstances Leading to Admission: Sent in by visiting nurse. Was feeling dizzy. Reportedly had fainted. Problem(s) Justifying Need for Admission: Med adjustment. Referral for services. Other HPI: Please see odd bundle worker's note. Sleep: a little bit on and off, 1-2 hours sleep last night. Appetite: low. Reports unquantified weight loss. Energy: pretty good overall but tired today from no sleep. Case and treatment plan discussed in team meeting. Staff reports that the patient denies SI. Somatic. Limited. Not going to groups. Has a visiting nurse. Past Psychiatric History Past Diagnosis(es)- if any: Schizoaffective d/o. Learning disability. Past Precipitating Factors- if any: Unknown. - Include inpatient and outpatient treatment Treatment History: Not in outpatient tx. [facility] in the past. [facility] in the past. Inpatient: IOP at 9 or 10 yo for 1 year for TREE. History of Suicide Attempts or Gestures 1 attempt in 2002, OD with meds, called for help. Substance Abuse History: No tobacco. No alcohol. No drugs. Allergies: Coded Allergies: NSAIDS (Non-Steroidal Anti-Inflamma (PER MED LIST [facility] 01/12/18 ) aspirin (PER MED LIST [facility] 01/12/18) cephalexin (From KEFLEX) (PER [facility] MED LIST 01/12/18) insulin glargine (From LANTUS U-100 INSULIN) (PER MED LIST [facility] 01/12/18) Home Med List: Acetaminophen 500 MG TABLET 2 TAB PO Q6H CERVICAL PAIN (Reported) Acetaminophen (Mapap) 500 MG TABLET 2 TAB PO BID PRN PAIN (Reported) Duloxetine HCl (Cymbalta) 60 MG CAPSULE.DR 1 CAP PO QAM UNKNOWN (Reported) Levothyroxine Sodium (Synthroid) 150 MCG TABLET 1 TAB PO DAILY THYROID ( Reported) Metformin HCl (Metformin HCl ER) 500 MG TAB.ER.24H 3 TAB PO QPM DM (Reported) Metronidazole (Metrocream) 0.75 % CREAM..G. 1 KERI TOP AD PRN ITCHY AREAS ( Reported) apply to affected area(s) Nortriptyline HCl (Pamelor) 10 MG CAPSULE 1 CAP PO QHS UNKNOWN (Reported) Nystatin (Nyamyc) 100,000 UNIT/GRAM POWDER 1 KERI TOP AD PRN FUNGAL AREA ( Reported) Omeprazole 20 MG CAPSULE.DR 1 CAP PO BID GI (Reported) Pravastatin Sodium 40 MG TABLET 1 TAB PO QPM CHOLESTEROL (Reported) Ramipril (Altace) 10 MG CAPSULE 1 CAP PO QAM BP (Reported) Sitagliptin Phosphate (Januvia) 100 MG TABLET 1 TAB PO QAM DM (Reported) - Include any medical condition(s) that may - impact the patient's recovery/remission Past Medical History: Dizziness. Back pain. Congenital heart murmur. ?Fungal skin infection(s). Hyperlipidemia. Hypertension. Type II DM. Recent weight loss, unquantified. R knee surgery 25-30 years ago, 2 pins. Gallstone removal. Learning disability. 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 Substance Use: Mother drank. Father drugs, especially MJ. Brother drinks. Suicides: Denied. Social History Living Situation: Lives alone in an apartment in [place]. Significant Relationships (family/friends): Parents are . Reports father did prostitution. Reports father was verbally abusive. Brother moved out at 15. Has no supports. Education: GED. Past special ed. for reading/LD/speech therapy. Vocation/Occupation: Worked at [employer] for 9 years. Worked at [employer] for years. Worked at [employer] 4.5 years. On disability. Legal: No arrest hx. Healthly Behaviors Screening Tobacco Screening Tobacco Use from ED Docu: Never used - If tobacco counseling indicated - the following topics are required. - #1 Recognizing dangerous situations. - #2 Coping Skills. - #3 Basic information about quitting. Status of Tobacco Cessation Counseling: Not Applicable Cessation Med Status Not Applicable Alcohol Screening - ETOH screen POS if BAL >=80 or Audit-C>= M4/F3 Audit-C Score from Diag Assess: 0 Blood Alcohol Level: Laboratory Tests 01/12 1546 Toxicology Serum Alcohol (<10 MG/DL) < 10.0 Alcohol Use Screening Results: Neg per Audit C &/or BAL - If ETOH counseling indicated - the following topics are required. - #1 Express concern about the patient's - drinking at unhealthy levels, include informing - of national norms for moderate drinking: - men <= 14 drinks/week, max 4 drinks/occasion - women <= 7 drinks/week, max 3 drinks/occasion - #2 Providing feedback, including linking alcohol to - negative physical effects (liver injury, hypertension) - negative emotional effects (relationship problems and - depression) - negative occupational consequences (reduced work - performance) - #3 Advising the patient to abstain from alcohol or - to drink below national norms for moderate drinking - (as listed above). Status of ETOH Use Counseling: N/A B/C NO ETOH Use Metabolic Screening - Screen if on a Neuroleptic Medication - Metabolic screening should include: - Blood Pressure, BMI, Glucose or Hgb A1c, & a - Lipid profile from within the past 365 days. Metabolic Screening () Not Applicable, patient not on a neuroleptic. OR () Patient on a neuroleptic(s) . Enter below results for Hemoglobin A1C, and lipid panel if obtained during the last 365 days. BMI: 34.300 Blood Pressure: 118/73 Laboratory Results From [facility] (If applicable): [x] Lab Cholesterol 167 MG/DL 01/14/18 0645 Cholesterol/HDL Ratio 3.7 % 01/14/18 0645 HDL Cholesterol 45 mg/dL 01/14/18 0645 Hemoglobin A1c 7.4 % H 01/14/18 1335 LDL Cholesterol, Calc 61 mg/dL L 01/14/18 0645 Triglycerides 306 mg/dL H 01/14/18 0645 Exam and Plan Mental Status Examination Ambulation Status: Unremarkable. Appearance: Dressed in blue paper scrubs. Has a goatee. Attitude towards examiner: Calm, polite and cooperative. Psychomotor activity: There is no psychomotor agitation/retardation. Behavior: Unremarkable. Quality of speech: Loud and dysarthric. Affect: Calm and euthymic. Mood: Reports he is here for h/a's and voices in his head. "I guess my nurse (and PT) thought I wasn't responsive." Had back pain, dizziness. Dizziness is getting stronger. Dizziness 6/10. Back pain 0/10. Headache ~7/10. Mood: "really good, just some headaches and dizziness." Sad 0/10. Anxiety ~0/10. Mason hopeless and helpless at home but not now. Denies feeling worthless or guilty. Suicidal Ideation: Denies active and passive SI. States he had SI because there are no treaters around his home. Homicidal Ideation: Denies HI. Hallucinations: Denies AH today. Denies VH. Paranoid/Delusional Material: Denies PI and magical denis. Difficulties with thought organization: None. Insight: Limited. Judgment: Limited. Orientation: Ox3 except 01/15/18. Cognition: A little slowed. Memory Function: Grossly intact. Estimate of intellectual functioning: Likely B.I.F. Assets/Strengths Patient Identified Assets/Strengths: Food shopping. Computer use. Listening to music. 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 Impression/Plan Impression and Plan: The patient is here after multiple [place] ER visits. No longer meeting inpatient level of care. We are setting up outpatient referrals. - Include all active medical diagnosis that require tx DSM 5 Diagnosis(es): Schizoaffective disorder. Hx learning disability. Hypothyroidism. Diabetes type II. Hypertension. Hyperlipidemia Chronic dizziness. Back pain. Headache. Congenital heart murmur. - Initial Tx Plan for Active Psych & Medical Conditions Treatment Plan: The patient has been monitored for safety, SI and AH. He was given olanzapine. Because of DM, we will change neuroleptic to Trilafon 4 mg qhs and add Cogentin 0.5 mg b.i.d. Major risks/benefits of these medications were discussed with the patient, including risks of irreversible TD and worsening metabolic syndrome from Trilafon. Discharge today to home with visiting nurse follow up, [facility] for medication management and follow up with PCP. Case d/w Dr. David Conti, PCP, tel. [phone]. - Factors that would help patient function - in a less restrictive setting. Factors: Not suicidal.
[2018-01-14 16:15] VITALS: BP 118/73
--- NOTE | 2018-01-14 16:47 | DISCHARGE SUMMARY REPORT-PSYCH ---
Visit Information Visit Dates/Diagnosis' Admission Date: 01/13/18 Discharge Date: 01/14/18 Reason for Admission: Referred by visiting nurse. Syncope. AH of father. Decreased sleep, motivation, energy, concentration and appetite. Limited supports. Psy Discharge Primary Diag: Schizoaffective disorder Psy Discharge Secondary Diag: Hx learning disability Hypothyroidism Diabetes type II Hypertension Hyperlipidemia Chronic dizziness Back pain Headache Congenital heart murmur Hospital Course Significant Lab Findings: Lab ALT 45 U/L 01/12/18 1546 AST 24 U/L 01/12/18 1546 Alkaline Phosphatase 217 U/L H 01/12/18 1546 BUN 10 mg/dL 01/12/18 1546 Calcium 8.5 mg/dL 01/12/18 1546 Carbon Dioxide 29 mmol/L 01/12/18 1546 Chloride 103 mmol/L 01/12/18 1546 Cholesterol 167 MG/DL 01/14/18 0645 Cholesterol/HDL Ratio 3.7 % 01/14/18 0645 Creatinine 0.6 mg/dL L 01/12/18 1546 Estimated GFR > 60 ml/min 01/12/18 1546 Free T4 0.74 ng/dL 01/14/18 0645 Glucose 148 mg/dL H 01/12/18 1546 HDL Cholesterol 45 mg/dL 01/14/18 0645 LDL Cholesterol, Calc 61 mg/dL L 01/14/18 0645 Potassium 4.4 mmol/L 01/12/18 1546 Sodium 141 mmol/L 01/12/18 1546 TSH 6.240 uIU/mL H 01/14/18 0645 Thyroxine (T4) 4.7 ug/dL 01/14/18 0645 Triglycerides 306 mg/dL H 01/14/18 0645 Hct 36.6 % L 01/12/18 1546 Hgb 12.0 G/DL L 01/12/18 1546 MCHC 32.7 G/DL L 01/12/18 1546 Monocytes % 10.2 % H 01/12/18 1546 Plt Count 169 /CUMM 01/12/18 1546 RBC 4.32 /CUMM L 01/12/18 1546 RDW 15.4 % H 01/12/18 1546 WBC 6.2 /CUMM 01/12/18 1546 Serum Alcohol < 10.0 MG/DL 01/12/18 1546 Urine Glucose 500 MG/DL H 01/12/18 1550 Lab Hemoglobin A1c 7.4 % H 01/14/18 1335 SERVICE DATE: 01/12/18 EXAM TYPE: CAT - CT HEAD WO IV CONTRAST EXAMINATION: CT HEAD WITHOUT CONTRAST CLINICAL INFORMATION: Altered mental status. COMPARISON: None. TECHNIQUE: Contiguous axial images of the brain were obtained without IV contrast. DLP: 621 mGy-cm. FINDINGS: There are no pathologic extra-axial fluid collections. The lateral, third, fourth ventricles are nondilated and concordant with the appearance of the sulci. There is no evidence for acute intraparenchymal hemorrhage or infarct. There is neither mass nor mass effect. There is no shift of midline structures. The paranasal sinuses and mastoid air cells are clear. There are no osseous lesions. IMPRESSION: No evidence for acute intracranial injury. EKG 01/12/18 showed sinus rhythm @ 73, borderline left axis deviation, incomplete right bundle branch block, no previous tracing, borderline EKG, QT 388, QTc 428. Course Complications: Patient was seen by Dr. Parra for admission H&P. Per his note of 01/13/18: "Assessment: 47M PMH schizoaffective disorder, hypothyroidism, T2DM presenting with manic episode, with complaints of chronic dizziness. Recommendations - Management per psychiatry - Continue home medications - Ambulatory for DVT PPx" Consultations: None. Allergies: Coded Allergies: NSAIDS (Non-Steroidal Anti-Inflamma (PER MED LIST [facility] 01/12/18 ) aspirin (PER MED [facility] 01/12/18) cephalexin (From KEFLEX) (PER [facility] MED LIST 01/12/18) insulin glargine (From LANTUS U-100 INSULIN) (PER MED [facility] 01/12/18) Hospital Course/TX Response: The patient was monitored on the unit for safety, psychosis and mood disorder. He refused to attend goups and asked for discharge. The patient is denying SI, HI, AH, VH and PI. Per my initial assessment of 01/14/18: "He was given olanzapine. Because of DM, we will change neuroleptic to Trilafon 4 mg qhs and add Cogentin 0.5 mg b.i.d. Major risks/benefits of these medications were discussed with the patient, including risks of irreversible TD and worsening metabolic syndrome from [facility]. Discharge today to home with visiting nurse follow up, [facility], OPS for medication management and follow up with PCP. Case d/w Dr. David Conti, PCP, tel. [phone]." Discharge HBIPS - Tobacco Use Treatment Offered Post DC Medications Offered: Not Applicable Post DC Tobacco Treatment Plan: Not Applicable - EtOH/Drug Use D/O Treatment Offered Post DC Medications Offered: NA-No EtOH/Drug Use D/O Post DC EtOH/SubAbuse TX Plan: NA-No EtOH/Drug Use D/O Metabolic Screening - Screen if on a Neuroleptic Medication - Metabolic screening should include: - Blood Pressure, BMI, Glucose or Hgb A1c, & a - Lipid profile from within the past 365 days. Metabolic Screening () Not Applicable, patient not on a neuroleptic. OR () Patient on a neuroleptic(s) . Enter below results for Hemoglobin A1C, and lipid panel if obtained during the last 365 days. BMI: 34.300 Blood Pressure: 118/73 Laboratory Results From [facility] (If applicable): [x] Lab Cholesterol 167 MG/DL 01/14/18 0645 Cholesterol/HDL Ratio 3.7 % 01/14/18 0645 HDL Cholesterol 45 mg/dL 01/14/18 0645 Hemoglobin A1c 7.4 % H 01/14/18 1335 LDL Cholesterol, Calc 61 mg/dL L 01/14/18 0645 Triglycerides 306 mg/dL H 01/14/18 0645 Discharge Instructions General Discharge Information Multiple Neuroleptics: ([x]) Not Applicable OR Document below three failed attempts at monotherapy, or a plan to taper to monotherapy, or augmentation of Clozapine. () Discharge Diet Diabetic Discharge Activity As Tolerated DC Disposition: Returning to home. Referrals Ordered Referrals [facility] 01/15/18 [address] [place] [address] [facility] [phone] Services will resume on 01/15/18. The patient will be contacted tomorrow prior to this appointment/visit. Outpatient Psychiatry 02/08/18 248[address] [place] [address] [facility] [address] [place] [address] Medication and initial assessment: 02/08/18, at 2:45pm with Marko Santiago APRN Provider Referral For Groups: [[facility]] [facility] [phone] Jong Loredo LCSW will contact you by phone early next week to schedule a therapy session at your home. Prescriptions Stop taking the following medications: Acetaminophen (Acetaminophen) 500 MG TABLET ORAL Q6H Nortriptyline HCl (Pamelor) 10 MG CAPSULE ORAL TAKE AT BEDTIME Continue taking these medications: Omeprazole (Omeprazole) 20 MG CAPSULE. 1 Capsule ORAL TWICE DAILY Comments: Last Taken:01/14/18 Time:9am Acetaminophen (Mapap) 500 MG TABLET 2 Tablet ORAL TWICE DAILY as needed for PAIN Comments: Last Taken:01/14/18 Time:9am Duloxetine HCl (Cymbalta) 60 MG CAPSULE.DR 1 Capsule ORAL Every Morning Comments: Last Taken:01/14/18 Time:9am Ramipril (Altace) 10 MG CAPSULE 1 Capsule ORAL Every Morning Comments: not taken in hospital Pravastatin Sodium (Pravastatin Sodium) 40 MG TABLET 1 Tablet ORAL Every night Comments: not taken in hospital Levothyroxine Sodium (Synthroid) 150 MCG TABLET 1 Tablet ORAL DAILY Comments: Last Taken:01/14/18 Time:7am Sitagliptin Phosphate (Januvia) 100 MG TABLET 1 Tablet ORAL Every Morning Comments: Last Taken:01/14/18 Time:9am Metformin HCl (Metformin HCl ER) 500 MG TAB.ER.24H 3 Tablet ORAL Every night Comments: Last Taken:01/13/18 Time:10pm Nystatin (Nyamyc) 100,000 UNIT/GRAM POWDER 1 Application On the skin As Directed as needed for FUNGAL AREA Comments: not taken in hospital Metronidazole (Metrocream) 0.75 % CREAM..G. 1 Application On the skin As Directed as needed for ITCHY AREAS Instructions: apply to affected area(s) Comments: not taken in hospital Start taking the following new medications: Benztropine Mesylate (Benztropine Mesylate) 0.5 MG TABLET 1 Tablet ORAL TWICE DAILY Qty = 28 No Refills Comments: Last Taken:01/14/18 Time:1pm Perphenazine (Perphenazine) 4 MG TABLET 1 Tablet ORAL AT BEDTIME Qty = 14 No Refills Comments: not taken yet in hospital Other Inst/Recommendations SeePCP for dizziness,back pain,H/A, hiTSH, high alk phos, anemia, abnl EKG Studies Pending at Discharge None. Copies To: [facility]; Gallito VARGAS,David Celaya; Marko Santiago APRN
--- NOTE | 2018-01-14 17:40 | SOCIAL WORKER PROG NOTE PSYCH ---
Social Work Progress Note Progress Note Patient stated that he was eager to discharge today, which he had discussed with Dr. Jean. This ad copy writer met with patient and stated that his visiting nurse, Lila , called the ambulance when the patient was unresponsive. He stated that he had gone to [facility] multiple times in the last two weeks due to back pain which triggered SI. He denied current SI and reported that he has attempted suicide once in the past, in 2002, following his mother's passing. Patient denied HI/ VH. He stated that he occassionally hears his father's voice making negative comments towards him, but did not want to discuss further. He denied ever experiencing command AH. Patient denied any past or current SA. Patient signed RON's for [facility], Care and [facility]. He stated that he did not want to attend any group therapy and only wanted individual therapy and medication management. PAtient stated that his transportation is limited due to funds and not having any family or friends that could drive him. He was agreeable and excited about the prospect of in home therapy. Patient was also agreeable to a referral to [facility] if [facility] did not accept the referral. This ad copy writer spoke with María, supervisor wash house at [facility] as the patient's nurse, Lila, was not working today. María shared that Lila visited the patient on 01/13/18, and per her note, he reported that he had been to [facility] for dizzyness. María stated that the patient shared with Lila that he had been informed by the ER that the dizzyness was due to dehydration. Lila had also described him as distracted and talkative. Lila called 911 after witnessing patient's two syncopal episodes and unresponsiveness. María stated that Lila had also reported that the patient expressed SI (denied any plan). María stated that the patient informed Lila that he had reported this to the [facility] ED, however, claimed that he had not been seen by the psychiatrist at [facility]. María shared that the patient has a history of psychiatric and medical conditions, can be argumentative and manipulative. 11:22am María stated that the patient receives prison once-twice per week as well as PT and a home health aide. She was informed that the patient will discharge today and that this ad copy writer will confirm once discharge plans are determined. This ad copy writer spoke with Lucie at [facility] regarding service specifics. Patient currently receives the following: -residential 1-2x/week -PT 3x/week from 01/08-01/21 and 2x/week from 01/22-02/04 -Home health aide 5x/week, mon-fri for one hour per day This ad copy writer left vm for Lali ([phone]) with [facility] as well as Panchito with [facility] ([phone]). Lali returned the call and stated that she would be able to accept the patient. The referral, diagnostic assessment and discharge instructions were faxed to Lali at [phone]. She stated that the patient would be contacted by Jong Batista LCSW early next week to schedule an individual session. Patient's number was confirmed. OPS - med appointment on 02/08/18 with Marko Santiago APRN (intake also part of this appointment) was scheduled. This is the earliest med appointment available, regardless of whether he has an earlier intake. This ad copy writer spoke with Teresita at [employer] ([phone]) at patient's request and confirmed that they can provide transportation and that the distance would not be a barrier. Kartik said that he has other appointments (PCP and diabetes appts already scheduled and does not need any other referrals/appts). Patient accepted the [facility] service, [facility] (with plan to resume services tomorrow) and OPS appointments. He identified a safety plan in which he would "come back here []." He also accepted the crisis numbers and warm lines upon discharge. He stated that he felt safe and comfortable with these discharge plans. Patient was informed that he would need to contact Dr. Jean for a medication refill prior to his medications running out. This was also relayed to María with [facility]. Patient accepted and was scheduled a Lyft ride home from the hospital. Faxed Referral(s) 1 Referred To: [facility] Transition of Care Documents sent: Health Summary (also incl psychiatric admissio) Faxed to: [facility] Fax #: [phone] Faxed by: Jez Tristan LCSW Date faxed: 01/14/18 Time Faxed: [phone] Faxed Referral(s) 2 Referred To: [facility] Transition of Care Documents sent: Health Summary Faxed to: [facility] Fax #: [phone] Faxed by: Jez Tristan LCSW Date faxed: 01/14/18 Time Faxed: [phone] Faxed Referral(s) 3 Referred To: [facility] Transition of Care Documents sent: Health Summary, W10 Faxed to: [facility] Fax #: [phone] Faxed by: Jez Tristan LCSW Date faxed: 01/14/18 Time Faxed: [phone]
--- NOTE | 2018-01-17 18:04 | IP INCIDENTAL NOTE PSYCH ---
Incidental Note Notation: [facility] RN called [facility] on 01/15/18 to report that pharmacy could not fill Cogentin until 01/17/18 and that [facility] RN was to see patient both days over last weekend and monitor his condition.
== END 2018-01-14 17:12 | DRG 885 ==
LOC: ERH 15:02 → CP SOUTH 01-13 13:33 → ERHI 01-13 13:33 → ENTRNSPT 01-13 15:55 → EDTRNSPTSTS 01-13 16:08 → CP SOUTH 01-13 16:18 → CMPTRNSPT 01-13 16:19 → CP SOUTH 01-14 17:12
PROVIDERS: Physician Assistant; Psychiatry & Neurology Psychiatry
DX: F25.9 Schizoaffective disorder, unspecified (principal); E03.9 Hypothyroidism, unspecified; I10 Essential (primary) hypertension; E78.5 Hyperlipidemia, unspecified; F81.9 Developmental disorder of scholastic skills, unspecified; E11.9 Type 2 diabetes mellitus without complications; R42 Dizziness and giddiness
CPT/HCPCS: 36415; 80307; 81003; 93005; 93010; G0463; G0480; J0515; J1200; J1630

== ENCOUNTER 2018-03-18 07:23 | Emergency (ER) | payer OTHER, MEDICARE ==
[~2018-03-18 07:23] MED LIST: ACETAMINOPHEN500 M4 PO; ALTACE10 M2 PO; BENZTROPINE ME0.5 M1 PO; CYMBALTA60 M1 PO; JANUVIA100 M1 PO; MAPAP500 M3 PO; METFORMIN HCL500 M4 PO; METROCREAM45 GM TOP; NYAMYC15 GM TOP; OMEPRAZOLE20 M2 PO; PAMELOR10 MG PO; PERPHENAZINE4 M1 PO; PRAVASTATIN SOD40 M2 PO; SYNTHROID150 MCG PO
--- NOTE | 2018-03-18 08:15 | ED GENERAL ADULT ---
History of Present Illness General Chief Complaint: General Adult Stated Complaint: BIBA FOR CHRONIC PAIN; DEPRESSION Source: patient Exam Limitations: no limitations Vital Signs & Intake/Output Vital Signs & Intake/Output Vital Signs Date Time Temp Pulse Resp B/P B/P Pulse O2 O2 Flow FiO2 Mean Ox Delivery Rate 03/18 0735 98.3 88 18 146/97 93 Room Air Allergies Coded Allergies: NSAIDS (Non-Steroidal Anti-Inflamma (STATES "BLOOD IN MY STOOL" 03/18/18) aspirin (PER MED LIST [facility] 01/12/18) cephalexin (From KEFLEX) (PER [facility] MED LIST 01/12/18) insulin glargine (From LANTUS U-100 INSULIN) (PER MED LIST [facility] 01/12/18) Reconcile Medications Acetaminophen (Mapap) 500 MG TABLET 2 TAB PO BID PRN PAIN (Reported) Benztropine Mesylate 0.5 MG TABLET 1 TAB PO BID to prevent muscle stiffness Duloxetine HCl (Cymbalta) 60 MG CAPSULE.DR 1 CAP PO QAM UNKNOWN (Reported) Levothyroxine Sodium (Synthroid) 150 MCG TABLET 1 TAB PO DAILY THYROID ( Reported) Metformin HCl (Metformin HCl ER) 500 MG TAB.ER.24H 3 TAB PO QPM DM (Reported) Metronidazole (Metrocream) 0.75 % CREAM..G. 1 KERI TOP AD PRN ITCHY AREAS ( Reported) apply to affected area(s) Nystatin (Nyamyc) 100,000 UNIT/GRAM POWDER 1 KERI TOP AD PRN FUNGAL AREA ( Reported) Omeprazole 20 MG CAPSULE.DR 1 CAP PO BID GI (Reported) Perphenazine 4 MG TABLET 1 TAB PO AT BEDTIME voices Pravastatin Sodium 40 MG TABLET 1 TAB PO QPM CHOLESTEROL (Reported) Ramipril (Altace) 10 MG CAPSULE 1 CAP PO QAM BP (Reported) Sitagliptin Phosphate (Januvia) 100 MG TABLET 1 TAB PO QAM DM (Reported) Triage Note: 47M JUNAID FROM [place] FOR CHRONIC BACK PAIN, NORMALLY SEEN AT [facility] BUT STATES THEY'RE NOT DOING ENOUGH FOR HIM. STATES HE CAME HERE BECAUSE WE'RE ONE OF THE ONLY HOSPITALS NOT ASSOCIATED WITH [facility]. ARRIVES WITH HIS HOME O2 AND WANTS IT REFILLED. HAD AN APPT TO RESOLVE THIS IN [facility] TO FIX HIS MACHINE. TAKING TRAMADOL FOR PAIN. STATES HE HAD AN APPT W PAIN MANAGEMENT TODAY BUT DOESN'T WANT TO ANSWER ANY MORE QUESTIONS. WHEN EDUCATED ON IMPORTANCE OF REFERRAL TO SPECIALISTS, PT STATES "JUST SEND ME HOME THEN." NOW REQUESTING TO SPEAK WITH A ADVERTISEMENT DISTRIBUTOR. HYPERVERBAL AND TANGENTIAL WITH RAMBLING SPEECH. STATES HES "LOST AND CONFUSED AND NO ONE CAN FIX ME". Triage Nurses Notes Reviewed? yes HPI: 47-year-old male with sleep apnea chronic low back pain learning disability diabetes presents for chronic low back pain and for feelings that he is not being taken care of appropriately. Patient goes to [facility] typically and states that he has been there every day for the past 2 weeks. He has no new complaints signs or symptoms. He is requesting help with finding a business case analyst to help him with his troubles. Denies suicidal or homicidal ideations. States that he lives alone. Past History Travel History Traveled to [place] past 21 day No Medical History Any Pertinent Medical History? see below for history Neurological: dizziness EENT: NONE Cardiovascular: hypertension Respiratory: NONE Gastrointestinal: constipation Hepatic: NONE Renal: NONE Musculoskeletal: NONE Psychiatric: bipolar disease, schizo affective disorder Endocrine: diabetes Blood Disorders: NONE Cancer(s): NONE GASOLINE SERVICE ATTENDANT/Reproductive: NONE History of MRSA: No History of VRE: No History of CDIFF: No Surgical History Surgical History: non-contributory Psychosocial History Who do you live with Patient/Self What is your primary language Japanese Tobacco Use: Never used Family History Family History, If Any: Relation not specified for: *No pertinent family history Hx Contributory? No Review of Systems Review of Systems Constitutional: Reports: no symptoms, see HPI. EENTM: Reports: no symptoms. Respiratory: Reports: no symptoms. Cardiovascular: Reports: no symptoms. GI: Reports: no symptoms. Genitourinary: Reports: no symptoms. Musculoskeletal: Reports: no symptoms. Skin: Reports: no symptoms. Neurological/Psychological: Reports: no symptoms. Hematologic/Endocrine: Reports: no symptoms. Immunologic/Allergic: Reports: no symptoms. All Other Systems: Reviewed and Negative Physical Exam Physical Exam General Appearance: no apparent distress, comfortable Comments: Gen.: Well-nourished, well-developed, no acute respiratory distress. Head: Normocephalic, atraumatic. Eyes: Normal inspection bilaterally Ears: Normal inspection bilaterally Nose: Normal inspection Throat/mouth : Moist mucosa Neck: Supple, full range of motion, no goiter Heart: Regular rate and rhythm, no murmurs rubs or gallops Lungs: Clear to auscultation bilaterally with normal air entry Chest: Nontender Back: Decreased spinal range of motion, negative for central or perivertebral tenderness. Abdomen: Soft, nontender, nondistended, normal bowel sounds Extremities: Normal range of motion grossly, equal radial pulses, no cyanosis clubbing or edema. She is ambulatory without assistive devices. He was noted walking from triage to the examining area which is greater than 200 feet. Neurologic: Cranial nerves grossly intact, speech is clear, deep tendon reflexes intact. Skin: warm and dry Psychiatric: Calm, cooperative, no apparent delusions or hallucinations, denies suicidal or homicidal ideations. Patient is tangential however keeps focus and comes back to original statements. Core Measures ACS in differential dx? No CVA/TIA Diagnosis: No Sepsis Present: No Sepsis Focused Exam Completed? No Progress Differential Diagnoses I considered the following diagnoses in my evaluation of the patient: Patient denies cancer unexplained weight loss or immunosuppression, denies IV drug abuse urinary tract infection or recent trauma. Denies pain increased by rest or associated fever. Denies bowel or bladder incontinence or urinary retention. Denies saddle paresthesias or major motor weakness. Psychiatric etiology vs needing social help/support. Plan of Care: Orders Procedure Date/time Status URINE DRUGS OF ABUSE 03/18 821 Active CBC WITHOUT DIFFERENTIAL 03/18 821 Complete BASIC METABOLIC PANEL 03/18 821 Complete Laboratory Tests 03/18/18 0833: Anion Gap 6, Estimated GFR > 60, BUN/Creatinine Ratio 11.4, Glucose 136 H, Calcium 8.3 L, CBC w Diff NO MAN DIFF REQ, RBC 4.37 L, MCV 84.3, MCH 28.3, MCHC 33.5, RDW 14.8 H, MPV 11.0 H, Gran % 61.5, Lymphocytes % 27.1, Monocytes % 9.0, Eosinophils % 2.1, Basophils % 0.3, Absolute Granulocytes 3.5, Absolute Lymphocytes 1.5, Absolute Monocytes 0.5, Absolute Eosinophils 0.1, Absolute Basophils 0 Initial ED EKG: none Comments: Patient has good medical and social support outpatient. He is to follow-up for his sleep study [facility]. Departure Departure Disposition: HOME OR SELF CARE Condition: Stable Clinical Impression Primary Impression: Back pain Qualifiers: Back pain location: low back pain Chronicity: chronic Back pain laterality: unspecified Sciatica presence: unspecified whether sciatica present Qualified Codes: M54.5 - Low back pain; G89.29 - Other chronic pain Referrals: Gallito VARGAS,David Celaya (PCP/Family) Departure Forms: Customer Survey General Discharge Information Comments Please note that there might be incidental findings in your evaluation that are unrelated to the current emergency department visit. Please notify your primary care doctor about this emergency department visit in order to obtain and review all of the testing performed so that these incidental findings can be monitored as needed. If you had an x-ray performed, please understand that some fractures may not be seen on the initial set of x-rays. If your symptoms persist you might need a repeat set of x-rays to check for such a fracture. If you had a laceration evaluated, please understand that foreign bodies such as glass or wood may not be visible to the naked eye or on plain x-rays. If the wound becomes red, swollen, increasingly more painful or if there is any drainage from the wound, please have it reevaluated by a physician for the possibility of a retained foreign body. If you're unable to follow up as outlined in the discharge instructions please return to the emergency department. Critical Care Note Critical Care Note Critical Care Time: non-applicable
[2018-03-18 08:56] LABS: ABSOLUTE BASOPHIL COUNT 0 /CUMM (0.0-0.2); ABSOLUTE EOSINOPHIL COUNT 0.1 /CUMM (0.0-0.7); ABSOLUTE GRANULOCYTE CT 3.5 /CUMM (1.4-6.5); ABSOLUTE LYMPH COUNT 1.5 /CUMM (1.2-3.4); ABSOLUTE MONOCYTE COUNT 0.5 /CUMM (0.10-0.60); BASOPHIL % 0.3 % (0.0-2.0); EOSINOPHIL % 2.1 % (0-5); GRANULOCYTE % 61.5 % (42.2-75.2); HEMATOCRIT 36.8 % (42-52); MEAN CORPUSCULAR HGB 28.3 PG (27.0-31.0); MEAN CORPUSCULAR HGB CONC 33.5 G/DL (33.0-37.0); MEAN CORPUSCULAR VOLUME 84.3 FL (80.0-94.0); PLATELET COUNT 156 /CUMM (130-400); RBC DISTRIBUTION WIDTH 14.8 % (11.5-14.5); RED BLOOD CELL CT 4.37 /CUMM (4.70-6.10); WHITE BLOOD CELL COUNT 5.7 /CUMM (4.8-10.8)
[2018-03-18 10:41] VITALS: BP 146/93
== END 2018-03-18 10:42 ==
LOC: ERH 07:23
PROVIDERS: Emergency Medicine
DX: M54.5 Low back pain (principal); I10 Essential (primary) hypertension; E11.9 Type 2 diabetes mellitus without complications; Z79.84 Long term (current) use of oral hypoglycemic drugs
CPT/HCPCS: 80307